=== PATIENT | male | born 1935 | race Caucasian/White ===

== ENCOUNTER 2016-10-06 08:25 | Inpatient (IN) | payer MEDICARE ==
[2016-10-01 14:08] VITALS: BMI 22.8
[~2016-10-06 08:25] MED LIST: DEXAMETHASONE SOD PHOSPHATE 10 MG/ML 1 ML VIAL IV ONE; HEPARIN SODIUM,PORCINE 5,000 UNIT/ML 1 ML VIAL SQ ONE; HYDROmorphone 1 MG/ML 1 ML SYRINGE IVP PRN; LIDOCAINE 1% 20 ML VIAL (10MG/ML) FOR IV START INTRADERMA PRN; ceFAZolin 2 GM in SODIUM CHLORIDE 0.9% 100 ML IVPB ONE
[2016-10-06] MEDS: LACTATED RINGERS 1,000 ML IV SCH ×2 (09:09→09:33)
[2016-10-06 09:13] LABS: Glucose,Whole Blood 116 mg/dL (75-99)
--- NOTE | 2016-10-06 09:20 | P.GSHP ---
History of Present Illness H&P Date: 10/06/16 Chief Complaint: Right upper quadrant pain This is a 81-year-old male referred from Dr. Ballard. Patient's complaints of right quadrant pain. He's had imaging which shows evidence of cholelithiasis. - Constitutional Constitutional: Reports as per HPI Past Medical History Past Medical History: Cancer, COPD, Diabetes Mellitus, Hyperlipidemia, Hypertension, Prostate Disorder Additional Past Medical History / Comment(s): HX OF SKIN CANCER, ENLARGED PROSTATE, DIABETES ( LOST WT AND GLUCOSE LEVELS NORMAL) History of Any Multi-Drug Resistant Organisms: None Reported Past Surgical History: Back Surgery, Hernia Repair, Orthopedic Surgery Additional Past Surgical History / Comment(s): COLONOSCOPY,RT HAND REPAIR Past Anesthesia/Blood Transfusion Reactions: No Reported Reaction Past Psychological History: Anxiety Smoking Status: Former smoker Past Alcohol Use History: Occasional Additional Past Alcohol Use History / Comment(s): SMOKED 1 PPD FOR 25 YEARS OR MORE. QUIT SMOKING 40 YEARS AGO. Past Drug Use History: None Reported - Past Family History Father Family Medical History: Asthma Additional Family Medical History / Comment(s): SKIN CANCER Mother Additional Family Medical History / Comment(s): gallbladder problems Daughter(s) Family Medical History: No Reported History Additional Family Medical History / Comment(s): ORAL CANCER Medications and Allergies Home Medications Medication Instructions Recorded Confirmed Type Albuterol Sulfate [Proair Hfa] 1 - 2 puff INHALATION Q6HR PRN 06/17/15 10/01/16 History Atenolol [Tenormin] 50 mg PO QAM 06/17/15 10/01/16 History Ipratropium-Albuterol Nebulize 3 ml INHALATION BID PRN 06/17/15 10/01/16 History [Duoneb 0.5 mg-3 mg/3 ml Soln] Lisinopril 20 mg PO HS 06/17/15 10/01/16 History Montelukast [Singulair] 10 mg PO HS 06/17/15 10/01/16 History Tamsulosin HCl [Flomax] 0.4 mg PO HS 06/17/15 10/01/16 History Ubidecarenone [Co Q-10] 100 mg PO HS 06/17/15 10/01/16 History Budesonide/Formoterol Fumarate 2 puff INHALATION HS 06/18/15 10/01/16 History [Symbicort 80-4.5 Mcg Inhaler] Aspirin [Adult Low Dose Aspirin EC] 81 mg PO DAILY 01/15/16 10/01/16 History LORazepam [Ativan] 1 mg PO DAILY PRN 01/15/16 10/01/16 History Multivitamins, Thera [Multivitamin] 1 tab PO DAILY 01/15/16 10/01/16 History Pravastatin Sodium [Pravachol] 40 mg PO HS 10/01/16 10/01/16 History Allergies Allergy/AdvReac Type Severity Reaction Status Date / Time No Known Allergies Allergy Verified 10/06/16 08:57 Surgical - Exam Vital Signs Temp Pulse Resp BP Pulse Ox 97.6 F 94 16 168/79 98 10/06/16 08:55 10/06/16 08:55 10/06/16 08:55 10/06/16 08:55 10/06/16 08:55 - General well developed, no distress - Eyes PERRL - ENT normal pinna - Neck no masses - Respiratory normal expansion - Cardiovascular Rhythm: regular - Abdomen Mild right upper quadrant tenderness Abdomen: soft Results - Labs Abnormal Lab Results - Last 24 Hours (Table) 10/06/16 Range/Units 09:07 POC Glucose (mg/dL) 116 H (75-99) mg/dL Assessment and Plan Plan: Cholelithiasis Chronic cholecystic We'll perform laparoscopic cholecystectomy
[2016-10-06] MEDS: ONDANSETRON 4 MG/2 ML VIAL IVP ONE ×2 (09:22→11:29)
[2016-10-06] MEDS ORDERED: SUCCINYLCHOLINE CHLORIDE 100 MG/5 ML SYR IV ONE (09:35)
[2016-10-06] MEDS ORDERED: KETOROLAC 30 MG/ML 1 ML VIAL ONE (09:35)
[2016-10-06] MEDS ORDERED: LABETALOL 5 MG/ML VIAL MDV ONE (09:35)
[2016-10-06] MEDS ORDERED: NEOSTIGMINE 1 MG/ML 10 ML VIAL ONE (09:35)
[2016-10-06] MEDS ORDERED: PROPOFOL 10 MG/ML 20 ML VIAL IV ONE (09:35)
[2016-10-06] MEDS ORDERED: LIDOCAINE 1% INJ 10MG/ML (20 ML MDV) ONE (09:35)
[2016-10-06] MEDS ORDERED: GLYCOPYRROLATE 0.2 MG/ML 2 ML VIAL ONE (09:35)
[2016-10-06] MEDS ORDERED: fentaNYL (PF) 50 MCG/ML 2 ML AMP ONE (09:35)
[2016-10-06] MEDS ORDERED: ROCURONIUM BROMIDE 10 MG/ML 10 ML VIAL IV ONE (09:35)
[2016-10-06] MEDS ORDERED: BUPIVACAIN-EPI 0.25%-1:200,000 30 ML VIAL SQ ONE ×3 (09:59)
[2016-10-06] MEDS ORDERED: LACTATED RINGERS 1,000 ML IV ONE ×3 (10:54→11:05)
[2016-10-06] MEDS ORDERED: ONDANSETRON 4 MG/2 ML VIAL IVP PRN (11:05)
[2016-10-06] MEDS ORDERED: NALOXONE 0.4 MG/ML 1 ML VIAL IV PRN (11:05)
--- NOTE | 2016-10-06 11:12 | P.OP ---
Date of Procedure: 10/06/16 Preoperative Diagnosis: Cholecystitis Cholelithiasis Postoperative Diagnosis: Acute gangrenous cholecystitis with pus filled gallbladder and cholelithiasis Procedure(s) Performed: Laparoscopic cholecystectomy Anesthesia: TOYINA Surgeon: Danielito King Estimated Blood Loss (ml): 50 Pathology: other (Gallbladder) Condition: stable Disposition: PACU Description of Procedure: The patient's placed on the operating table in the supine position. He received general anesthesia. His abdomen was prepped and draped usual sterile fashion. The skin incision sites were anesthetized 1% local Xylocaine. A skin incision was made at the umbilicus and then using a Veress needle and a pair of [place] clamps the fascia was grasped in the peritoneal cavity was entered. Position of the Veress needle was confirmed with positive drop test. After adequate insufflation the 10 mm trochars placed in the pleural cavity. And then the laparoscope was placed in her cavity. Next a 8 mm trochars placed in the epigastric position and then a 50 trochars placed in the right lateral and left lateral position. The gallbladder appeared to be very inflamed. The gallbladder is grasped the fundus to the grasper and purulent fluid was seen. The gallbladder wall was very friable. We. Fluid was aspirated. Gallbladder was retracted cephalad and then the adhesions to the gallbladder were lysed using Harmonic scissors. And then another grasper was placed near the infundibulum the gallbladder. The gallbladder was very inflamed. Due to the dense inflammation the cystic duct union with the common bile duct could not be seen. At this point a suitable spot of the neck of the gallbladder was visualized. And then using the [place] retractor the dissection was made around the neck of the gallbladder. The neck of the gallbladder was then ligated using 0 Ethibond tie and the thymic device. The gallbladder neck was then cut with the Harmonic scissors. And then the cystic duct was visualized and it was cut and sealed using Harmonic scissors. The gallbladder was removed from the liver bed using the Harmonic scissors. Once in the gallbladder was very friable in the posterior wall of the gallbladder appeared to have some necrosis. The gallbladder is removed from the liver bed using Harmonic scissors and then placed into an Endo Catch and brought out through the 8 mm trocar site. The abdomen was irrigated. Several small bleeding points liver bed were coagulated using left cautery. A piece of Surgicel snow was placed into the liver bed. And then a PATIENCE drain was placed in the gallbladder fossa and brought through separate stab incision. There is no bleeding seen. The trochars withdrawn. Skin was closed interrupted 3-0 Monocryl suture. Dermabond was applied. The drain was secured with 2-0 nylon suture. Patient was sent to recovery room in stable condition.
[2016-10-06] MEDS ORDERED: PIPERACILLIN-TAZOBACTAM 3.375 GM in DEXTROSE/WATER 1 50ML.BAG IVPB ONE (11:15)
[2016-10-06] MEDS: HYDROmorphone 1 MG/ML 1 ML SYRINGE IVP ONE ×3 (11:32→11:51)
[2016-10-06] MEDS ORDERED: LACTATED RINGERS 1,000 ML IV SCH (16:30)
[2016-10-06] MEDS ORDERED: IPRATROPIUM-ALBUTEROL 3 ML NEB INHALATION PRN (17:21)
[2016-10-06] MEDS: INSULIN LISPRO (humaLOG) 300 UNIT/3 ML VIAL SQ SCH ×2 (17:35→21:31)
[2016-10-06] MEDS: ACETAMINOPHEN TAB 325 MG TAB PO PRN (17:46)
[2016-10-06] MEDS ORDERED: MAG HYDROX/AL HYDROX/SIMETH 30 ML CUP PO PRN (19:19)
[2016-10-06] MEDS: LISINOPRIL 20 MG TAB PO SCH (20:07)
[2016-10-06] MEDS: HEPARIN SODIUM,PORCINE 5,000 UNIT/ML 1 ML VIAL SQ SCH (20:07)
[2016-10-06] MEDS: PRAVASTATIN SODIUM 40 MG TAB PO SCH (20:07)
[2016-10-06] MEDS: TAMSULOSIN 0.4 MG CAP.ER.24H PO SCH (20:07)
[2016-10-06 20:44] LABS: Glucose,Whole Blood 183 mg/dL (75-99)
[2016-10-06] MEDS: SYMBICORT 80-4.5 MCG INHALER INHALATION SCH (21:12)
--- NOTE | 2016-10-06 21:34 | CONS ---
DATE OF CONSULTATION: REASON FOR CONSULTATION: Advice regarding diabetes mellitus and multiple medical issues, requested by Dr. Ballard. HISTORY OF PRESENT ILLNESS: This 81-year-old gentleman with a past medical history of COPD, history of diabetes mellitus, hypertension, hyperlipidemia, history of prostate disorder, history of back surgery, history of anxiety, being followed by Dr. Ballard in the outpatient setting, underwent laparoscopic cholecystectomy for acute gangrenous cholecystitis with gallbladder and cholelithiasis. The patient is being closely monitored. Patient is complaining of some abdominal pain. There is no history of any fever, rigor, or chills. No history of any headache, loss of consciousness, seizures. PAST MEDICAL HISTORY: 1. History of COPD. 2. Diabetes mellitus. 3. Hypertension. 4. Hyperlipidemia. 5. History of prostate disorder. 6. History of skin cancer. 7. Back surgery. 8. Hernia repair. Medications prior to admission include: 1. Coenzyme Q 100 mg p.o. at bedtime. 2. Multivitamin 1 p.o. daily. 3. Ecotrin 81 mg daily. 4. ProAir 1 to 2 puffs q.6 p.r.n. 5. Symbicort 80/4.5 two puffs at bedtime. 6. Flomax 0.4 at bedtime. 7. Pravachol 40 mg at bedtime. 8. Singulair 10 mg at bedtime. 9. Lisinopril 20 mg at bedtime. 10. Tenormin 50 mg each morning. 11. Ativan 1 mg daily p.r.n. 12. DuoNeb b.i.d. and p.r.n. 13. Naalehu 7.5 mg q.6 p.r.n. ALLERGIES: NONE. FAMILY HISTORY: Oral cancer in the family. SOCIAL HISTORY: Previous history of smoking. No current smoking or alcohol intake. REVIEW OF SYSTEMS: ENT: No diminished hearing. No diminished vision. CARDIOVASCULAR SYSTEM: No angina, palpitations. RESPIRATORY: As mentioned earlier. GI: No nausea. : No dysuria. NERVOUS SYSTEM: No numbness, weakness. ALLERGY/IMMUNOLOGY: No asthma, hayfever. MUSCULOSKELETAL: As mentioned earlier. HEMATOLOGY/ONCOLOGY: No history of anemia. ENDOCRINE: History of diabetes. CONSTITUTIONAL: As mentioned earlier. DERMATOLOGY: Negative. RHEUMATOLOGY: Negative. PSYCHIATRY: As mentioned earlier. PHYSICAL EXAMINATION: Patient is alert and oriented x3. Pulse is 100. Blood pressure is 101/67, respiration 20, temperature normal, pulse ox 97% on room air. HEENT: Conjunctivae normal. Oral mucosa moist. Bandaged nose, status post recent resection of skin cancer. NECK: No jugular venous distention. No carotid bruit. No lymph node enlargement. CARDIOVASCULAR SYSTEM: S1, S2 muffled. S3 mild tachycardic. RESPIRATORY SYSTEM: Breath sounds diminished at the bases. No rhonchi. No crackles. ABDOMEN: Soft. Mild tenderness status post surgery. Otherwise, bowel sounds absent. LEGS: No edema. No swelling. NERVOUS SYSTEM: Higher functions as mentioned earlier. Moves all 4 limbs. No focal motor or sensory deficit. LYMPHATICS: No lymph node palpable in neck, axillae or groin. SKIN: No ulcer, rash or bleeding. LABS: Glucose 116. Recent labs showed hemoglobin 12.7. BUN 31. LFTs normal. UA: urine microalbumin also normal. ASSESSMENT: 1. Status post laparoscopic cholecystectomy for acute gangrenous cholecystitis with gallbladder and cholelithiasis. 2. Diabetes mellitus, type 2. 3. Hypertension. 4. Hyperlipidemia. 5. Chronic obstructive pulmonary disease. 6. History of prostate disorder. 7. History of skin cancer. 8. Benign prostatic hypertrophy. 9. History of back surgery. 10. Degenerative joint disease. 11. History of colonoscopy. 12. History of anxiety. 13. Remote history of nicotine dependence. 14. FULL CODE. RECOMMENDATIONS AND DISCUSSION: In this 81-year-old gentleman who presented with multiple complex medical issues, we will monitor the patient closely, continue the current medication, continue symptomatic treatment. I recommend resuming the home medications, broad-spectrum IV antibiotics, DVT prophylaxis, incentive spirometry. Guarded prognosis because of multiple complex medical issues. Further recommendations to follow. A copy of this dictation is being forwarded to Dr. Ballard, who is the primary physician. HEIDY
[2016-10-06] MEDS: LORazepam 1 MG TAB PO PRN (22:00)
[2016-10-06] MEDS: PIPERACILLIN-TAZOBACTAM 3.375 GM in DEXTROSE/WATER 1 50ML.BAG IVPB SCH (23:49)
[2016-10-06] MEDS: HYDROmorphone 1 MG/ML 1 ML SYRINGE IVP PRN (23:58)
[2016-10-07] MEDS: HYDROmorphone 1 MG/ML 1 ML SYRINGE IVP PRN ×2 (03:15→08:23)
[2016-10-07] MEDS: LACTATED RINGERS 1,000 ML IV SCH (06:36)
[2016-10-07 06:46] LABS: Glucose,Whole Blood 121 mg/dL (75-99)
[2016-10-07] MEDS: INSULIN LISPRO (humaLOG) 300 UNIT/3 ML VIAL SQ SCH ×4 (07:53→21:09)
[2016-10-07] MEDS: PIPERACILLIN-TAZOBACTAM 3.375 GM in DEXTROSE/WATER 1 50ML.BAG IVPB SCH ×2 (08:04→17:17)
[2016-10-07] MEDS: ATENOLOL 50 MG TAB PO SCH (08:06)
[2016-10-07] MEDS: HEPARIN SODIUM,PORCINE 5,000 UNIT/ML 1 ML VIAL SQ SCH ×2 (08:06→21:08)
[2016-10-07 08:10] LABS: Basophils % (A) 0 %; CH 31.8; Eosinophils % (A) 0 %; HCT 33.6 % (39.0-53.0); HDW 2.18; HGB 10.7 gm/dL (13.0-17.5); Luc # (Auto) 0.11; Luc % (Auto) 1; Lymphocytes # (A) 1.2 k/uL (1.0-4.8); Lymphocytes % (A) 6 %; MCH 30.8 pg (25.0-35.0); MCHC 31.8 g/dL (31.0-37.0); MCV 96.7 fL (80.0-100.0); Mean Platelet Volume 7.3; Monocytes # (A) 0.3 k/uL (0-1.0); Monocytes % (A) 2 %; Neutrophils # (A) 18.2 k/uL (1.3-7.7); Neutrophils % (A) 92 %; RBC 3.48 m/uL (4.30-5.90); RDW 11.8 % (11.5-15.5); WBC 19.8 k/uL (3.8-10.6); WBC (Perox) 21.22
[2016-10-07 08:24] LABS: ALT 70 U/L (21-72); AST 85 U/L (17-59); Alkaline Phosphatase 86 U/L (38-126); Anion Gap 8 mmol/L; Blood Urea Nitrogen 17 mg/dL (9-20); Calcium 8.6 mg/dL (8.4-10.2); Carbon Dioxide 27 mmol/L (22-30); Chloride 101 mmol/L (98-107); Glucose 114 mg/dL (74-99); Non-African American GFR(MDRD) 59 (>60 ml/min/1.73 sqM); Potassium 4.5 mmol/L (3.5-5.1); Sodium 136 mmol/L (137-145); Total Bilirubin 0.7 mg/dL (0.2-1.3); Total Protein 5.4 g/dL (6.3-8.2)
[2016-10-07] MEDS: HYDROcodone/APAP 5-325MG 1 EACH TAB PO PRN ×2 (11:05→17:18)
[2016-10-07 12:11] LABS: Glucose,Whole Blood 115 mg/dL (75-99)
--- NOTE | 2016-10-07 13:09 | P.PN ---
Subjective Patient is an 81-year-old white male status post laparoscopic cholecystectomy with findings of acute gangrenous cholecystitis with pus filled gallbladder and cholelithiasis. Patient is evaluated on the observation unit and he is postop day #1. Patient is complaining of moderate incisional pain exacerbated with movement and coughing currently rated 4 out of 10. Denies chills, sweats, nausea, vomiting, shortness of breath, or chest pain. Denies flatus or bowel movements. Patient is urinating without difficulty. Tolerating a clear liquid diet. PATIENCE drain with 95 mL of serosanguinous drainage in last 24 hours. Afebrile. WBC count 19.8. Hemoglobin 10.7. Objective - Vital Signs Vital signs: Vital Signs Temp 97.6 F 10/07/16 08:00 Pulse 97 10/07/16 12:00 Resp 18 10/07/16 12:00 BP 113/60 10/07/16 08:00 Pulse Ox 92 L 10/07/16 08:00 Intake & Output 10/06/16 10/07/16 10/07/16 18:59 06:59 18:59 Intake Total 1700 Output Total 130 15 25 Balance 1570 -15 -25 Weight 68.039 kg Intake: IV 1700 Output: Drainage 80 15 25 Right Abdomen 80 15 25 Estimated Blood Loss 50 - Exam GENERAL: Pt awake and alert, well-appearing, well-nourished, and in no acute distress. HEAD: Atraumatic, normocephalic. EYES: Pupils equal, round, sclera anicteric, conjunctiva are normal. ENT:Moist mucous membranes. LUNGS: Breath sounds clear to auscultation bilaterally. No wheezes, rales, or rhonchi. HEART: Heart S1, S2, no S3 or S4. Regular rate and rhythm. No murmurs, rubs or gallops. ABDOMEN: Soft, mild incisional tenderness, nondistended, normoactive bowel sounds. No guarding, no rebound. No masses or organomegaly appreciated. Laparoscopic surgical incisions dry, intact, no erythema or drainage. Horace- Downey drain compressed with minimal serosanguineous drainage. NEUROLOGICAL: Pt oriented x 3. - Labs CBC & Chem 7: 10/07/16 07:11 10/07/16 07:11 Labs: Abnormal Lab Results - Last 24 Hours (Table) 0310/07/16 10/07/16 Range/Units 20:33 06:43 07:11 WBC 19.8 H (3.8-10.6) k/uL RBC 3.48 L (4.30-5.90) m/uL Hgb 10.7 L (13.0-17.5) gm/dL Hct 33.6 L (39.0-53.0) % Neutrophils # 18.2 H (1.3-7.7) k/uL Sodium (137-145) mmol/L Glucose (74-99) mg/dL POC Glucose (mg/dL) 183 H 121 H (75-99) mg/dL AST (17-59) U/L Total Protein (6.3-8.2) g/dL Albumin (3.5-5.0) g/dL 10/07/16 10/07/16 Range/Units 07:11 12:06 WBC (3.8-10.6) k/uL RBC (4.30-5.90) m/uL Hgb (13.0-17.5) gm/dL Hct (39.0-53.0) % Neutrophils # (1.3-7.7) k/uL Sodium 136 L (137-145) mmol/L Glucose 114 H (74-99) mg/dL POC Glucose (mg/dL) 115 H (75-99) mg/dL AST 85 H (17-59) U/L Total Protein 5.4 L (6.3-8.2) g/dL Albumin 3.0 L (3.5-5.0) g/dL Assessment and Plan Plan: Impression: 1. Acute gangrenous cholecystitis with pus filled gallbladder and cholelithiasis status post laparoscopic cholecystectomy on 10/06/2016. Plan: 1. Continue to monitor patient. Consult Dr. Rees for infectious disease service for persistent leukocytosis and antibiotic management. Continue to monitor drain. Continue supportive treatment and pain management. Advance diet to low-fat as tolerated. Encourage incentive spirometry 10 times an hour while awake. Continue GI and DVT prophylaxis. Increase activity. Continue to follow with medical team. Repeat CBC and CMP in a.m. The above impression and plan have been discussed and directed by Dr. King. Héctor TENA acting as scribe for Dr. King.
[2016-10-07 14:04] LABS: Hemoglobin A1C 6.3 % (4.2-6.1)
[2016-10-07 15:36] LABS: Potassium 4.2 mmol/L (3.5-5.1)
--- NOTE | 2016-10-07 16:38 | PN ---
DATE OF SERVICE: 10/07/2016 This 81-year-old gentleman who was admitted after laparoscopic cholecystectomy also had gangrenous cholecystitis, significant pus. Patient is on broad-spectrum IV antibiotics. No chest pain. No palpitation. No fever. On exam, alert and oriented x3. Pulse 97, blood pressure 130/60, respiration 18, temperature 97.6, pulse ox 92% on room air. HEENT: Conjunctivae normal. NECK: No jugular venous distention. CARDIOVASCULAR SYSTEM: S1, S2 muffled. RESPIRATORY SYSTEM: Breath sounds diminished at the bases. A few scattered rhonchi and crackles. ABDOMEN: Soft. Mild diffuse tenderness. LEGS: No edema. No swelling. NERVOUS SYSTEM: No focal deficit. LABS: WBC 19.8, hemoglobin is 10.7. Potassium is 6.3, sodium 136. ASSESSMENT: 1. Status post laparoscopic cholecystectomy for acute gangrenous cholecystitis with pus in the gallbladder with possible sepsis as well as cholelithiasis. 2. Increased white count. 3. Diabetes mellitus, type 2. 4. Hypertension. 5. Mild hyperkalemia. 6. Hyponatremia. 7. Hyperlipidemia. 8. Chronic obstructive pulmonary disease. 9. History of prostate disorder. 10. History of skin cancer. 11. Benign prostatic hypertrophy. 12. History of back surgery. 13. History of degenerative joint disease. 14. History of colonoscopy. 15. History of anxiety. 16. Remote history of nicotine dependence. 17. FULL CODE. RECOMMENDATIONS AND DISCUSSION: I recommend to continue with the current medications, continue with the monitoring, symptomatic treatment. Continue with the broad-spectrum IV antibiotics. Repeat labs. Closely follow with Surgery, Dr. King, as well as Infectious Disease. Guarded prognosis. Further recommendations to follow.
[2016-10-07 17:14] LABS: Glucose,Whole Blood 104 mg/dL (75-99)
[2016-10-07 20:20] LABS: Glucose,Whole Blood 159 mg/dL (75-99)
[2016-10-07] MEDS: TAMSULOSIN 0.4 MG CAP.ER.24H PO SCH (21:09)
[2016-10-07] MEDS: LISINOPRIL 20 MG TAB PO SCH (21:09)
[2016-10-07] MEDS: PRAVASTATIN SODIUM 40 MG TAB PO SCH (21:09)
[2016-10-07] MEDS: PANTOPRAZOLE 40 MG/10 ML VIAL IVP SCH (21:09)
[2016-10-07] MEDS: SYMBICORT 80-4.5 MCG INHALER INHALATION SCH (21:20)
[2016-10-08] MEDS: LACTATED RINGERS 1,000 ML IV SCH (00:02)
[2016-10-08] MEDS: PIPERACILLIN-TAZOBACTAM 3.375 GM in DEXTROSE/WATER 1 50ML.BAG IVPB SCH ×4 (00:04→23:42)
[2016-10-08] MEDS: HYDROcodone/APAP 5-325MG 1 EACH TAB PO PRN ×2 (01:20→07:43)
[2016-10-08 06:54] LABS: Glucose,Whole Blood 103 mg/dL (75-99)
--- NOTE | 2016-10-08 06:57 | CONS ---
DATE OF CONSULTATION: 10/07/2016 REASON FOR CONSULTATION: 1. Leukocytosis. 2. Acute gangrenous cholecystitis. HISTORY OF PRESENT ILLNESS: The patient is an 81-year-old male who has been relatively admitted to the hospital for laparoscopic cholecystectomy for chronic cholecystitis. Surgery was done on 10/06/2016. During surgery the patient was noted to have an acute gangrenous cholecystitis with positive gallbladder. Patient did have CBC done this morning and noticed to have a white count of 19.8. Pip-tazobactam was added. I was asked to see the patient for further recommendation regarding IV antibiotics therapy. No blood cultures have been done. Patient has been complaining of pain at incision site, which is mostly sharp, 3 to 4 out of 10 and no radiation. The patient did have PATIENCE drain with serosanguineous secretion. The patient denies having any nausea, vomiting. Denies having any fever, rigors or chills. Denies any chest pain. Some shortness of breath, but no cough. No diarrhea and no urinary symptoms. REVIEW OF SYSTEMS: CONSTITUTIONAL: Positive for weakness. EYES: No complaint. ENT: No complaint. RESPIRATORY: As per HPI. CARDIOVASCULAR: No complaint. GENITOURINARY: No complaint. RESPIRATORY: As per HPI. MUSCULOSKELETAL: No complaint. Integumentary no complaint. PSYCHOLOGICAL: No complaint. ENDOCRINE: No complaint. NEUROLOGICAL: No complaint. PAST MEDICAL HISTORY: Hypertension, hyperlipidemia, diabetes mellitus, COPD, skin cancer, benign prostatic hypertrophy, anxiety. PAST SURGICAL HISTORY: Colonoscopy, right hand repair, back surgery, hernia repair. SOCIAL HISTORY: The patient has 25 pack years history of smoking; quit about 40 years ago. No drinking or drug use. FAMILY HISTORY: Father with history of asthma and skin cancer. ALLERGIES: No known drug allergies. Medications currently include the patient is on Flomax, Pravachol, pip-tazobactam, Protonix, Zofran, Narcan, Ativan, Zestril, Humalog, Dilaudid, heparin, Symbicort, Tenormin, DuoNeb, Maalox, [place], and Tylenol. On examination, blood pressure is 145/57 with a pulse of 83, temperature 97.5. He is 93% on room air. General description is an elderly male, lying in bed in no distress. No tachypnea or accessory muscle of respiration use. HEENT slight pallor. There is no scleral icterus. Oral mucous membrane is dry. NECK: Trachea central. There is no thyromegaly. LUNGS: Unlabored breathing. Clear to auscultation anteriorly. HEART: S1, S2. Regular rate and rhythm. ABDOMEN: Soft, slightly tender. Minimally tender to touch with serosanguineous secretion in the PATIENCE drainage. EXTREMITIES: No edema of feet. SKIN EXAMINATION: No rash or mass palpable. NEUROLOGICAL: The patient is awake, alert, oriented x3. Mood and affect are normal. LABS: Hemoglobin is 10.7, white count of 19.8 with a BUN of 17, creatinine 1.19. AST of 85, ALT 17, bilirubin 0.7. DIAGNOSTIC IMPRESSION AND PLAN: Patient with leukocytosis which is more likely secondary to underlying acute gangrenous cholecystitis with evidence of pus status post laparoscopic cholecystectomy. The likely organism we need to cover would be enteric gram-negative sharlene more likely aerobes and less likely anaerobes. PLAN: 1. Obtain blood culture x2 stat. 2. Will start the patient on Zosyn 3.375 grams IV q.8 hours. 3. Will follow up on his clinical condition and cultures to further adjust the medication if needed. Thank you for this consultation. We will follow this patient along with you.
[2016-10-08 07:18] LABS: Basophils % (A) 0 %; CH 31.4; CHCM 32.7; Eosinophils % (A) 0 %; HCT 33.9 % (39.0-53.0); HDW 2.14; HGB 10.8 gm/dL (13.0-17.5); Luc # (Auto) 0.15; Luc % (Auto) 1; Lymphocytes # (A) 1.3 k/uL (1.0-4.8); Lymphocytes % (A) 9 %; MCH 30.5 pg (25.0-35.0); MCHC 31.7 g/dL (31.0-37.0); MCV 96.1 fL (80.0-100.0); Mean Platelet Volume 6.8; Monocytes # (A) 0.5 k/uL (0-1.0); Monocytes % (A) 3 %; Neutrophils # (A) 12.2 k/uL (1.3-7.7); Neutrophils % (A) 86 %; RBC 3.53 m/uL (4.30-5.90); RDW 11.9 % (11.5-15.5); WBC 14.2 k/uL (3.8-10.6); WBC (Perox) 15.39
[2016-10-08 07:26] LABS: ALT 50 U/L (21-72); AST 73 U/L (17-59); Alkaline Phosphatase 89 U/L (38-126); Anion Gap 11 mmol/L; Blood Urea Nitrogen 13 mg/dL (9-20); Calcium 8.6 mg/dL (8.4-10.2); Carbon Dioxide 26 mmol/L (22-30); Chloride 100 mmol/L (98-107); Glucose 115 mg/dL (74-99); Non-African American GFR(MDRD) 59 (>60 ml/min/1.73 sqM); Potassium 4.1 mmol/L (3.5-5.1); Sodium 137 mmol/L (137-145); Total Bilirubin 0.8 mg/dL (0.2-1.3); Total Protein 5.7 g/dL (6.3-8.2)
[2016-10-08] MEDS: INSULIN LISPRO (humaLOG) 300 UNIT/3 ML VIAL SQ SCH ×4 (07:31→21:08)
[2016-10-08] MEDS: ATENOLOL 50 MG TAB PO SCH (07:34)
[2016-10-08] MEDS: HEPARIN SODIUM,PORCINE 5,000 UNIT/ML 1 ML VIAL SQ SCH ×2 (07:34→21:07)
[2016-10-08] MEDS: PANTOPRAZOLE 40 MG/10 ML VIAL IVP SCH ×2 (07:34→21:07)
[2016-10-08 08:47] LABS: Glucose,Whole Blood 138 mg/dL (75-99)
[2016-10-08 11:54] LABS: Glucose,Whole Blood 123 mg/dL (75-99)
--- NOTE | 2016-10-08 13:44 | P.PN ---
Subjective Principal diagnosis: Gangrenous cholecystitis with purulent bile The patient states he feels better. He still has evidence of leukocytosis. His abdominal pain has improved. Objective - Vital Signs Vital signs: Vital Signs Temp 96.6 F L 10/08/16 07:19 Pulse 90 10/08/16 08:00 Resp 17 10/08/16 08:00 BP 120/69 10/08/16 07:19 Pulse Ox 94 L 10/08/16 07:19 Intake & Output 10/07/16 10/08/16 10/08/16 18:59 06:59 18:59 Intake Total 100 50 Output Total 25 20 Balance -25 80 50 Weight 68.039 kg 68.039 kg Intake: Intake, IV Titration 50 Amount Piperacillin-Tazobactam 3 50 .375 gm In Dextrose/Water 1 50ml.bag @ 12.5 mls/hr IVPB Q8HR [facility] Rx#: [id number] Oral 100 Output: Drainage 25 20 Right Abdomen 25 20 Other: Voiding Method Toilet Toilet Toilet # Voids 2 2 - Constitutional General appearance: Present: average body habitus - EENT Eyes: Present: anicteric sclerae - Gastrointestinal Gastrointestinal Comment(s): Abdomen soft. Incision sites are clean dry and intact. PATIENCE drain is serosanguineous - Labs CBC & Chem 7: 10/08/16 06:21 10/08/16 06:21 Labs: Abnormal Lab Results - Last 24 Hours (Table) 10/07/16 10/07/16 10/07/16 Range/Units 07:11 16:53 20:11 WBC (3.8-10.6) k/uL RBC (4.30-5.90) m/uL Hgb (13.0-17.5) gm/dL Hct (39.0-53.0) % Neutrophils # (1.3-7.7) k/uL Glucose (74-99) mg/dL POC Glucose (mg/dL) 104 H 159 H (75-99) mg/dL Hemoglobin A1c 6.3 H (4.2-6.1) % AST (17-59) U/L Total Protein (6.3-8.2) g/dL Albumin (3.5-5.0) g/dL 10/08/16 10/08/16 10/08/16 Range/Units 06:21 06:21 06:52 WBC 14.2 H (3.8-10.6) k/uL RBC 3.53 L (4.30-5.90) m/uL Hgb 10.8 L (13.0-17.5) gm/dL Hct 33.9 L (39.0-53.0) % Neutrophils # 12.2 H (1.3-7.7) k/uL Glucose 115 H (74-99) mg/dL POC Glucose (mg/dL) 103 H (75-99) mg/dL Hemoglobin A1c (4.2-6.1) % AST 73 H (17-59) U/L Total Protein 5.7 L (6.3-8.2) g/dL Albumin 3.0 L (3.5-5.0) g/dL 10/08/16 10/08/16 Range/Units 08:46 11:53 WBC (3.8-10.6) k/uL RBC (4.30-5.90) m/uL Hgb (13.0-17.5) gm/dL Hct (39.0-53.0) % Neutrophils # (1.3-7.7) k/uL Glucose (74-99) mg/dL POC Glucose (mg/dL) 138 H 123 H (75-99) mg/dL Hemoglobin A1c (4.2-6.1) % AST (17-59) U/L Total Protein (6.3-8.2) g/dL Albumin (3.5-5.0) g/dL Assessment and Plan Plan: Acute and chronic cholecystitis. Patient still has a leukocytosis. He received IV antibiotics over the weekend. Dr. Macdonald will be covering me.
[2016-10-08] MEDS ORDERED: LORazepam 1 MG TAB PO PRN (14:16)
[2016-10-08] MEDS: ACETAMINOPHEN TAB 325 MG TAB PO PRN ×2 (14:51→21:05)
[2016-10-08 17:12] LABS: Glucose,Whole Blood 129 mg/dL (75-99)
--- NOTE | 2016-10-08 19:05 | PN ---
DATE OF SERVICE: 10/08/2016 This 81-year-old gentleman who was admitted after laparoscopic cholecystectomy, gangrene cholecystitis, is improving significantly. No chest pain, no palpitations, no fever. On exam, alert and oriented x3. Pulse 71, blood pressure 120/60, respiration 16, temperature 98 degrees, pulse ox 93% on room air. HEENT: Conjunctivae normal. NECK: No jugular venous distention. CARDIOVASCULAR: S1 and S2, muffled. RESPIRATORY: Breath sounds diminished at the bases. No rhonchi, no crackles. ABDOMEN: Soft, status post surgery, mild tenderness postop. LEGS: No edema, no swelling. NERVOUS SYSTEM: No focal deficits. LABS: WBC 14.3, hemoglobin 10.8. Accu-Cheks 132. Albumin is 3. ASSESSMENT: 1. Status post laparoscopic cholecystectomy for acute gangrenous cholecystitis with pus in the gallbladder with possible sepsis as well as cholelithiasis. 2. Increased WBC. 3. Diabetes mellitus type 2. 4. Hypertension. 5. Mild hyperkalemia. 6. Hyponatremia. 7. Hyperlipidemia. 8. Chronic obstructive pulmonary disease. 9. History of prostate cancer. 10. History of skin cancer. 11. History of benign prostatic hypertrophy. 12. History of back surgery. 13. History of degenerative joint disease. 14. History of colonoscopy. 15. History of anxiety. 16. Remote history of nicotine dependence. 17. FULL CODE. RECOMMENDATIONS AND DISCUSSION: I recommend to continue the current medications, continue monitoring and symptomatic treatment. Otherwise, continue the broad-spectrum IV antibiotics. Infectious Disease has been consulted. Guarded prognosis. Closely followed by Dr. King. Further recommendations to follow.
[2016-10-08] MEDS: SYMBICORT 80-4.5 MCG INHALER INHALATION SCH (20:14)
[2016-10-08 20:43] LABS: Glucose,Whole Blood 143 mg/dL (75-99)
[2016-10-08] MEDS: LISINOPRIL 20 MG TAB PO SCH (21:07)
[2016-10-08] MEDS: PRAVASTATIN SODIUM 40 MG TAB PO SCH (21:07)
[2016-10-08] MEDS: TAMSULOSIN 0.4 MG CAP.ER.24H PO SCH (21:07)
--- NOTE | 2016-10-08 21:53 | PN ---
DATE OF SERVICE: 10/08/2016 REASON FOR FOLLOWUP: Acute gangrenous cholecystitis with leukocytosis. INTERVAL HISTORY: The patient is afebrile. He has been breathing comfortably. He is still having some pain in his right upper quadrant area, though improved. Did have output in his PATIENCE drain. Denies any chest pain, shortness of breath or cough. On examination, blood pressure is 120/66 with a pulse of 71, temperature 98. He is 93% on room air. General description is an elderly male lying in bed in no distress. RESPIRATORY SYSTEM: Unlabored breathing. Clear to auscultation anteriorly. HEART: S1, S2. Regular rate and rhythm. ABDOMEN: Soft. PATIENCE drain with serosanguineous secretions. EXTREMITIES: No edema of feet. LABS: Hemoglobin is 10.8, white count 14.2 with a BUN of 30, creatinine 1.18. Blood culture is so far negative. DIAGNOSTIC IMPRESSION AND PLAN: Patient with acute gangrenous cholecystitis with gangrenous gallbladder, status post laparoscopic cholecystectomy. Patient at this time will be maintained on Zosyn while waiting for the culture to finalize. Discussed the care in detail with the surgeon to keep the patient on IV antibiotic over the weekend. Continue supportive care. HEIDY
[2016-10-09] MEDS: ACETAMINOPHEN TAB 325 MG TAB PO PRN ×2 (06:23→19:01)
[2016-10-09 07:14] LABS: Glucose,Whole Blood 122 mg/dL (75-99)
[2016-10-09] MEDS: HEPARIN SODIUM,PORCINE 5,000 UNIT/ML 1 ML VIAL SQ SCH ×2 (07:36→20:24)
[2016-10-09] MEDS: ATENOLOL 50 MG TAB PO SCH (07:36)
[2016-10-09] MEDS: PANTOPRAZOLE 40 MG/10 ML VIAL IVP SCH (07:36)
[2016-10-09] MEDS: PIPERACILLIN-TAZOBACTAM 3.375 GM in DEXTROSE/WATER 1 50ML.BAG IVPB SCH ×2 (07:38→16:45)
[2016-10-09] MEDS: INSULIN LISPRO (humaLOG) 300 UNIT/3 ML VIAL SQ SCH ×4 (07:43→20:24)
--- NOTE | 2016-10-09 11:35 | P.PN ---
Subjective Principal diagnosis: Cholecystitis with empyema of the gallbladder The patient is feeling well. Denies any nausea or vomiting. Tolerating a diet. He is anxious to go home. He is concerned about sutures he has on his nose from removal of a skin cancer. Objective - Vital Signs Vital signs: Vital Signs Temp 98 F 10/09/16 07:43 Pulse 89 10/09/16 07:43 Resp 16 10/09/16 07:43 BP 155/74 10/09/16 07:43 Pulse Ox 97 10/09/16 07:43 Intake & Output 10/08/16 10/09/16 10/09/16 18:59 06:59 18:59 Intake Total 460 Output Total 30 Balance 460 -30 Weight 68.039 kg Intake: Intake, IV Titration 100 Amount Piperacillin-Tazobactam 3 100 .375 gm In Dextrose/Water 1 50ml.bag @ 12.5 mls/hr IVPB Q8HR TRAY Rx#: [id number] Oral 360 Output: Drainage 30 Right Abdomen 30 Other: Voiding Method Toilet Toilet # Voids 2 2 1 - Constitutional General appearance: Present: cooperative, no acute distress - EENT EENT Comment(s): Well-healing scar along the bridge of his nose. No cellulitis. - Gastrointestinal Gastrointestinal Comment(s): Incisions are healing without cellulitis. PATIENCE is dark yellow drainage. Doesn't appear frankly to be bile General gastrointestinal: Present: normal bowel sounds, soft - Labs CBC & Chem 7: 10/08/16 06:21 10/08/16 06:21 Labs: Abnormal Lab Results - Last 24 Hours (Table) 10/08/16 10/08/16 10/08/16 Range/Units 11:53 17:11 20:41 POC Glucose (mg/dL) 123 H 129 H 143 H (75-99) mg/dL 10/09/16 Range/Units 06:47 POC Glucose (mg/dL) 122 H (75-99) mg/dL Microbiology - Last 24 Hours (Table) 10/07/16 15:33 Blood Culture - Preliminary Blood No Growth after 24 hours 10/07/16 15:06 Blood Culture - Preliminary Blood No Growth after 24 hours Assessment and Plan (1) Empyema of gallbladder Status: Acute (2) Cholelithiasis Status: Acute Plan: Explained the need to continue his IV antibiotics over the weekend. We'll recheck his white count tomorrow. We'll order local wound care for the incision on his nose. Progressing slowly.
[2016-10-09] MEDS: LORazepam 1 MG TAB PO PRN ×2 (11:53→20:30)
[2016-10-09 11:55] LABS: Glucose,Whole Blood 124 mg/dL (75-99)
[2016-10-09] MEDS: BACITRACIN 500 UNIT/GM OINT 28.4 GM TUBE TOPICAL SCH (14:32)
[2016-10-09] MEDS: LACTATED RINGERS 1,000 ML IV SCH (14:32)
[2016-10-09 16:28] LABS: Glucose,Whole Blood 125 mg/dL (75-99)
[2016-10-09] MEDS: SYMBICORT 80-4.5 MCG INHALER INHALATION SCH (19:05)
[2016-10-09 20:17] LABS: Glucose,Whole Blood 164 mg/dL (75-99)
[2016-10-09] MEDS: LISINOPRIL 20 MG TAB PO SCH (20:24)
[2016-10-09] MEDS: TAMSULOSIN 0.4 MG CAP.ER.24H PO SCH (20:24)
[2016-10-09] MEDS: PRAVASTATIN SODIUM 40 MG TAB PO SCH (20:24)
[2016-10-10] MEDS: PIPERACILLIN-TAZOBACTAM 3.375 GM in DEXTROSE/WATER 1 50ML.BAG IVPB SCH ×3 (00:31→15:13)
[2016-10-10] MEDS: ACETAMINOPHEN TAB 325 MG TAB PO PRN (01:37)
[2016-10-10 01:53] VITALS: RESP 16
[2016-10-10 06:52] LABS: Glucose,Whole Blood 109 mg/dL (75-99)
[2016-10-10] MEDS: INSULIN LISPRO (humaLOG) 300 UNIT/3 ML VIAL SQ SCH ×3 (07:33→18:36)
[2016-10-10] MEDS: HEPARIN SODIUM,PORCINE 5,000 UNIT/ML 1 ML VIAL SQ SCH (07:47)
[2016-10-10] MEDS: PANTOPRAZOLE 40 MG TABLET PO SCH ×2 (07:49→18:36)
[2016-10-10] MEDS: ATENOLOL 50 MG TAB PO SCH (07:49)
[2016-10-10 07:57] VITALS: TEMP 97
--- NOTE | 2016-10-10 10:24 | PN ---
DATE OF SERVICE: 10/09/2016 This 81-year-old gentleman admitted for laparoscopic cholecystectomy has improved significantly. No chest pain or palpitations. No fever. The patient is on broad spectrum IV antibiotics. Surgery and Infectious Disease are following the patient. On exam, alert, oriented x3. VITAL SIGNS: pulse 89, blood pressure 155/74, respirations 16, temperature 98, pulse 97% on room air. HEENT: Conjunctivae normal. NECK: No JVD. CARDIOVASCULAR: S1 and S2. LUNGS: Breath sounds diminished in the bases. Few scattered rhonchi and crackles. ABDOMEN: Soft, status post surgery. EXTREMITIES: Legs no edema. HOSPITAL SCIENTIST: No focal deficits. LABS: WBC 14, hemoglobin 10. Other labs are noted. ASSESSMENT: 1. Status post laparoscopic cholecystectomy for acute gangrenous cholecystitis with a significant amount of pus in the gallbladder with possible sepsis as well as cholelithiasis. 2. Increased WBC. 3. Diabetes mellitus type 2. 4. Hypertension. 5. Hyperkalemia. 6. Hyponatremia. 7. Hyperlipidemia. 8. Chronic obstructive pulmonary disease. 9. History of prostate cancer. 10. History of skin cancer. 11. History of benign prostatic hypertrophy. 12. History of back surgery. 13. History of degenerative joint disease. 14. History of colonoscopy. 15. History of anxiety. 16. Remote history of nicotine dependence. 17. FULL CODE. RECOMMENDATIONS: Recommend to continue with monitoring and symptomatic treatment. Otherwise at this time cultures are negative. Continue with broad spectrum IV antibiotics. Repeat labs in the morning. Follow closely with surgery. Guarded prognosis. Further recommendations to follow.
[2016-10-10 10:32] LABS: CH 31.6; CHCM 32.5; HCT 35.9 % (39.0-53.0); HDW 2.23; HGB 11.9 gm/dL (13.0-17.5); MCH 32.2 pg (25.0-35.0); MCHC 33.1 g/dL (31.0-37.0); MCV 97.5 fL (80.0-100.0); Mean Platelet Volume 7.5; RBC 3.68 m/uL (4.30-5.90)
--- NOTE | 2016-10-10 10:35 | P.DS ---
Providers Date of admission: 10/07/16 12:47 Expected date of discharge: 10/10/16 Attending physician: Danielito King Consults: 10/06/16 11:05 Consult Physician Routine Consulting Provider: Madi Ngo Consult Reason/Comments: Medical management Do you want consulting provider notified?: Yes 10/07/16 12:45 Consult Physician Urgent Consulting Provider: Janet Rees Consult Reason/Comments: leukocytosis Do you want consulting provider notified?: Yes Primary care physician: Brianda Ballard - Discharge Diagnosis(es) (1) Empyema of gallbladder Current Visit: Yes Status: Acute (2) Cholelithiasis Current Visit: Yes Status: Acute Hospital Course: The patient presented with acute abdominal pain. Workup showed cholecystitis. He was taken to the OR where he underwent a laparoscopic cholecystectomy with findings of empyema. A drain was placed. He was given IV antibiotics. His lab improved. He was running fevers. The PATIENCE was having minimal drainage. He was concerned about having some sutures removed on Tuesday morning. His plastic surgeon. He is therefore discharged after his afternoon dose of IV antibiotics on oral antibiotics and pain medication. Patient Condition at Discharge: Good Plan - Discharge Summary New Discharge Prescriptions: Ciprofloxacin HCl [Cipro] 500 mg PO Q12HR #14 tablet HYDROcodone/APAP 7.5-325MG [Igo 7.5-325] 1 tab PO Q6HR PRN #28 tab PRN Reason: Pain metroNIDAZOLE [Flagyl] 500 mg PO BID #21 tab Discharge Medication List Albuterol Sulfate [Proair Hfa] 1 - 2 puff INHALATION RT-QID PRN 06/17/15 [ History] Atenolol [Tenormin] 50 mg PO QAM 06/17/15 [History] Ipratropium-Albuterol Nebulize [Duoneb 0.5 mg-3 mg/3 ml Soln] 3 ml INHALATION RT -BID PRN 06/17/15 [History] Lisinopril 20 mg PO HS 06/17/15 [History] Montelukast [Singulair] 10 mg PO HS 06/17/15 [History] Tamsulosin HCl [Flomax] 0.4 mg PO HS 06/17/15 [History] Ubidecarenone [Co Q-10] 100 mg PO HS 06/17/15 [History] Budesonide/Formoterol Fumarate [Symbicort 80-4.5 Mcg Inhaler] 2 puff INHALATION RT-HS 06/18/15 [History] Aspirin [Adult Low Dose Aspirin EC] 81 mg PO DAILY 01/15/16 [History] LORazepam [Ativan] 1 mg PO DAILY PRN 01/15/16 [History] Multivitamins, Thera [Multivitamin] 1 tab PO DAILY 01/15/16 [History] Pravastatin Sodium [Pravachol] 40 mg PO HS 10/01/16 [History] HYDROcodone/APAP 7.5-325MG [Igo 7.5-325] 1 tab PO Q6HR PRN #28 tab 10/06/16 [ Rx] Ciprofloxacin HCl [Cipro] 500 mg PO Q12HR #14 tablet 10/10/16 [Rx] metroNIDAZOLE [Flagyl] 500 mg PO BID #21 tab 10/10/16 [Rx] Follow up Appointment(s)/Referral(s): Brianda Ballard MD [Primary Care Provider] - 1 Week Danielito King MD [STAFF PHYSICIAN] - 1 Week Patient Instructions/Handouts: *Surgery [facility] - Laparoscopic Cholecystectomy Discharge Instructions Activity/Diet/Wound Care/Special Instructions: No heavy lifting, pushing, or pulling items greater than 10 pounds. Low fat diet Shower daily, no soaking in bath tubs, pools, or hot tubs. No driving while taking pain medication. Notify surgeon with any signs or symptoms of infection, increased pain, or not tolerating diet.
[2016-10-10 10:41] LABS: ALT 37 U/L (21-72); AST 65 U/L (17-59); Alkaline Phosphatase 83 U/L (38-126); Anion Gap 13 mmol/L; Blood Urea Nitrogen 10 mg/dL (9-20); Calcium 9.2 mg/dL (8.4-10.2); Carbon Dioxide 24 mmol/L (22-30); Chloride 103 mmol/L (98-107); Glucose 136 mg/dL (74-99); Non-African American GFR(MDRD) >60 (>60 ml/min/1.73 sqM); Potassium 4.4 mmol/L (3.5-5.1); Sodium 140 mmol/L (137-145); Total Bilirubin 0.6 mg/dL (0.2-1.3); Total Protein 6.3 g/dL (6.3-8.2)
[2016-10-10 11:49] LABS: Glucose,Whole Blood 109 mg/dL (75-99)
[2016-10-10] MEDS: BACITRACIN 500 UNIT/GM OINT 28.4 GM TUBE TOPICAL SCH (11:53)
[2016-10-10] MEDS: LACTATED RINGERS 1,000 ML IV SCH (13:34)
[2016-10-10 14:17] VITALS: BP 140/66; PULSE 75
[2016-10-10 16:54] LABS: Glucose,Whole Blood 123 mg/dL (75-99)
--- NOTE | 2016-10-10 16:56 | PN ---
DATE OF SERVICE: 10/09/2016 REASON FOR FOLLOWUP: Acute gangrenous cholecystitis with leukocytosis. INTERVAL HISTORY: The patient is afebrile, has been breathing comfortably. His abdominal pain is currently improved. The patient denies having any chest pain or shortness of breath or cough. No nausea or vomiting. Did have a bowel movement and tolerating his diet. On examination, blood pressure is 158/77 with a pulse of 74, temperature 98.3. General description is an elderly male, lying in bed in no distress. RESPIRATORY SYSTEM: Unlabored breathing. Clear to auscultation anteriorly. HEART: S1, S2. Regular rate and rhythm. ABDOMEN: Soft. No tenderness. PATIENCE drainage serosanginous. LABS: No new labs have been obtained. The blood culture has been negative. DIAGNOSTIC IMPRESSION AND PLAN: Patient with acute gangrenous cholecystitis, status post laparoscopic cholecystectomy. Patient at this time to continue Zosyn over the weekend. The patient continues to improve and white count normalized. Blood cultures negative. Will be able to switch him to oral antibiotics hopefully on Tuesday. Continue supportive care. HEIDY
--- NOTE | 2016-10-11 09:13 | PN ---
DATE OF SERVICE: 10/10/2016 This 81 -year-old gentleman admitted after laparoscopic had gangrenous cholecystitis and gallbladder. The patient was given IV antibiotics. Dr. Macdonald is covering for Dr. King has recommended the patient be discharged. The patient white count is normal. Hemoglobin is 11.9. No chest pain. No palpitations. No fever. No shortness of breath. On exam, alert and oriented times three. Pulse 70. Respiratory rate 16, blood pressure 170/77, respiratory rate 16, temperature 97 degrees, pulse ox 98% on room air. Repeat blood sugars are normal. Repeat blood pressure is normal. HEENT: Conjunctivae normal. NECK: No jugular venous distention. CARDIOVASCULAR: S1, S2 muffled. RESPIRATORY: Breath sounds diminished at the bases. No rhonchi. No crackles. ABDOMEN: Soft, status post surgery. LEGS: No edema. No swelling. Nervous system: No focal deficits. LABS: WBC 10, hemoglobin 11.9. Other labs are noted. ASSESSMENT: 1. Status post laparoscopic cholecystectomy for acute gangrenous cholecystitis significant amount of pus in the gallbladder with possible sepsis as well as cholelithiasis present on admission. 2. Increased WBC. 3. Diabetes mellitus type 2. 4. Hypertension, essential. 5. Hyperkalemia, improved. 6. Hyponatremia. 7. Hyperlipidemia. 8. Chronic obstructive pulmonary disease. 9. History of prostate cancer. 10. History of skin cancers. 11. History of benign prostatic hypertrophy. 12. History of back surgery. 13. History of degenerative joint disease. 14. History of colonoscopy. 15. History of anxiety. 16. Remote history of nicotine dependence. 17. FULL CODE. RECOMMENDATIONS AND DISCUSSION: Continue the current medications. Continue symptomatic treatment. I would recommend to follow up with Dr. Ballard closely. Continue the rest of the medications, and recommendations per surgery. Continue with antibiotics for one more week. Further recommendations to follow. MTDD
--- NOTE | 2016-10-11 09:50 | PN ---
DATE OF SERVICE: 10/10/2016 Reason for follow-up: Acute gangrenous cholecystitis. INTERVAL HISTORY: The patient is afebrile. He has been feeling better. Output in the PATIENCE drain has significantly decreased and hence it has been taken off. The patient denies having any chest pain or shortness of breath or cough. No nausea. No vomiting. No diarrhea. On examination, blood pressure 140/66 with a pulse of 75, temperature 97. He is 96% on room air. General description is an elderly male lying in bed in no distress. RESPIRATORY SYSTEM: Unlabored breathing. Clear to auscultation anteriorly. HEART: S1, S2. Regular rate and rhythm. ABDOMEN: Soft. No tenderness. LABS: White count normal at 10. DIAGNOSTIC IMPRESSION AND PLAN: Patient with acute gangrenous cholecystitis, status post laparoscopic cholecystectomy and the patient blood culture has been negative. White count has normalized. Plan to finish therapy with p.o. Cipro and Flagyl for another week to 10 days with outpatient follow-up.
== END 2016-10-10 18:40 | disposition home or self-care (01) | DRG 418 ==
LOC: OR 08:25 → 3OBS 11:12 → OR 10-07 12:47 → 3SUR 10-07 14:45
PROVIDERS: ADMIT Surgery; ATTEND Surgery
PROC: 0FT44ZZ Resection of Gallbladder, Percutaneous Endoscopic Approach (ICD-10-PCS; principal; 2016-10-07)
DX: K80.12 Calculus of gallbladder with acute and chronic cholecystitis without obstruction (principal); E87.1 Hypo-osmolality and hyponatremia; E87.5 Hyperkalemia; J44.9 Chronic obstructive pulmonary disease, unspecified; E78.5 Hyperlipidemia, unspecified; F41.9 Anxiety disorder, unspecified; I10 Essential (primary) hypertension; M19.90 Unspecified osteoarthritis, unspecified site; N40.0 Benign prostatic hyperplasia without lower urinary tract symptoms; Z79.82 Long term (current) use of aspirin; Z79.899 Other long term (current) drug therapy; Z80.8 Family history of malignant neoplasm of other organs or systems; Z82.5 Family history of asthma and other chronic lower respiratory diseases; Z85.46 Personal history of malignant neoplasm of prostate; Z85.828 Personal history of other malignant neoplasm of skin; Z87.891 Personal history of nicotine dependence; E11.9 Type 2 diabetes mellitus without complications
CPT/HCPCS: 80051; 80053; 83036; 85025; 85027; 87040; 88304